=== PATIENT | male | born 1985 | race Caucasian/White ===

== ENCOUNTER 2023-01-26 23:47 | Emergency (ER) | payer OTHER ==
[~2023-01-26] VITALS: Ht 177.8 cm; Wt 79.3 kg
[2023-01-27 00:15] VITALS: BP 114/86
[2023-01-27 00:30] VITALS: BP 123/96
[2023-01-27 00:41] LABS: BASO% 0.3 % (0-3); EOS% 1.5 % (0-8); HEMATOCRIT 37.3 % (39.0-50.0); HEMOGLOBIN 12.5 g/dl (14.0-18.0); IMMATURE GRANULOCYTES 0.7 % (0.0-5.0); LYMPH% 29.4 % (15-41); MEAN CELL VOLUME 94.2 fL CALC (80.0-100.0); MEAN CORPUSCULAR HGB 31.6 pG CALC (26.0-32.0); MEAN CORPUSCULAR HGB CONC 33.5 g/dL CAL (32.0-36.0); MONO% 10.5 % (2-13); NEUT# 3.96 thou/uL (1.82-7.42); NEUT% 57.6 % (42-76); RED BLOOD COUNT 3.96 mill/uL (4.70-6.10); RED CELL DISTRI WIDTH 12.4 % (11.5-15.5)
[2023-01-27 00:55] LABS: ALBUMIN 4.2 g/dL (3.2-5.0); ALKALINE PHOSPHATASE 78 u/l (38-126); ANION GAP 11 (6-22 (CALC)); BILIRUBIN, TOTAL 0.6 mg/dL (0.2-1.3); BUN 10 mg/dL (9-20); BUN/CREATININE RATIO 11 (12-20 (CALC)); CARBON DIOXIDE 27 mmol/l (22-30); CHLORIDE 103 mmol/l (95-108); CREATININE 0.9 mg/dL (0.7-1.3); GFR FOR AFR.AMER. > 60 ML/MIN (>=60 (CALC)); GFR OTHER RACES > 60 ML/MIN (>=60 (CALC)); LIPASE 35 u/l (23-300); POTASSIUM 3.4 mmol/l (3.5-5.1); SGOT/AST 28 u/l (17-59); SODIUM 138 mmol/l (137-146)
[2023-01-27 01:31] VITALS: BP 120/87
[2023-01-27 01:54] LABS: URINE BILIRUBIN - DIPSTICK NEGATIVE (NEGATIVE); URINE BLOOD DIPSTICK NEGATIVE (NEGATIVE); URINE COLOR YELLOW; URINE GLUCOSE - DIPSTICK NEGATIVE (NEGATIVE); URINE KETONE NEGATIVE (NEGATIVE); URINE LEUK ESTERASE NEGATIVE (NEGATIVE); URINE PH 5.5 (4.5-8.0); URINE PROTEIN - DIPSTICK NEGATIVE (NEG-TRACE); URINE SPECIFIC GRAVITY <=1.005; URINE UROBILINOGEN - DIPSTICK 0.2 E.U./dL (0.2)
[2023-01-27 02:00] VITALS: BP 120/83
[2023-01-27 02:03] LABS: URINE NITRITE - DIPSTICK NEGATIVE (Negative)
[2023-01-27] MEDS ORDERED: PEPCID20 MG PO (02:17)
[2023-01-27 02:40] VITALS: BP 124/83
== END 2023-01-27 02:45 | DRG 392 ==
LOC: ED 23:47
PROVIDERS: Family Medicine
DX: R10.12 Left upper quadrant pain (principal); R51.9 Headache, unspecified
CPT/HCPCS: S0164

== ENCOUNTER 2023-03-19 10:15 | Emergency (ER) | payer OTHER ==
[~2023-03-19] VITALS: Ht 177.8 cm; Wt 86.1 kg
[~2023-03-19 10:15] MED LIST: PEPCID20 MG PO
[2023-03-19 10:22] VITALS: BP 138/98
[2023-03-19 10:30] VITALS: BP 128/89
[2023-03-19 10:45] VITALS: BP 127/92
[2023-03-19 11:00] VITALS: BP 127/90
[2023-03-19] MEDS ORDERED: METHOCARBAMOL500 MG PO (11:08)
[2023-03-19] MEDS ORDERED: MELOXICAM7.5 MG PO (11:08)
[2023-03-19 11:15] VITALS: BP 128/93
== END 2023-03-19 11:40 | disposition home or self-care (01) | DRG 552 ==
LOC: ED 10:15
DX: M54.59 Other low back pain (principal); F41.9 Anxiety disorder, unspecified; Z91.81 History of falling; M54.89 Other dorsalgia